=== PATIENT | female | born 1935 | race Caucasian/White ===

== ENCOUNTER → 2018-04-16 11:47 | Outpatient (CLI) | payer MEDICARE, OTHER, SELFPAY ==
--- NOTE | 2018-04-16 | DI.MG.S_ITS ---
BILATERAL DIGITAL SCREENING MAMMOGRAM 3D/2D WITH CAD: 04/16/2018 CLINICAL: Routine screening. Comparison is made to exams dated: 03/23/2017 mammogram - [facility], 02/24/2014 mammogram, and 01/24/2012 mammogram - [facility]. The tissue of both breasts is heterogeneously dense. This may lower the sensitivity of mammography. Current study was also evaluated with a Computer Aided Detection (CAD) system. No significant masses, calcifications, or other findings are seen in either breast. There has been no significant interval change. IMPRESSION: NEGATIVE There is no mammographic evidence of malignancy. A 1 year screening mammogram is recommended. This exam was interpreted at Station ID: [id number]. NOTE: For mammograms, a report in lay terms will be sent to the patient. Approximately 15% of breast malignancies will not be visualized mammographically. In the management of a palpable breast mass, a negative mammogram must not discourage biopsy of a clinically suspicious lesion. Electronically Signed By: Reese morris/laron:04/17/2018 08:48:30 letter sent: Normal Exam ACR BI-RADS Category 1: Negative [id number]
== END ==
PROVIDERS: PCP Family Medicine; Visit Provider Family Medicine
DX: Z12.31 Encounter for screening mammogram for malignant neoplasm of breast (principal)
CPT/HCPCS: 77063; 77067

== ENCOUNTER → 2018-12-18 16:16 | Outpatient (CLI) | payer MEDICARE, OTHER, SELFPAY ==
--- NOTE | 2018-12-18 | DI.RAD.S_ITS ---
PROCEDURE: XR LUMBAR SPINE 2-3V INDICATIONS: BACK PAIN TECHNIQUE: 3 views of the lumbar spine were acquired. COMPARISON: None. FINDINGS: Bones: 5 zog-omy-doyhuix vertebrae are present. There is normal bony alignment. No vertebral body compression fractures. No suspicious bony lesions. Moderate degenerative disc disease is seen best noted at the left lateral aspect of the L2-3 level of the lumbosacral spine, and also at L4-5 and L5-S1. Soft tissues: Overlying bowel gas pattern is normal. No suspicious soft tissue calcifications. IMPRESSION: No acute trauma found. Degenerative disc disease is moderate to moderately severe at L2-3 and L4-5 through L5-S1. Spinal and foraminal stenosis likely is associated at L4-5 and L5-S1. Dictated by: Wilmer Zambrano M.D. on 12/19/2018 at 8:17 Approved by: Wilmer Zambrano M.D. on 12/19/2018 at 8:18
--- NOTE | 2018-12-18 | DI.RAD.S_ITS ---
PROCEDURE: XR THORACIC SPINE 3V INDICATIONS: BACK PAIN TECHNIQUE: 3 views of the thoracic spine were acquired. COMPARISON: None. FINDINGS: Bones: No fractures or dislocations. No suspicious bony lesions. 12 pairs of ribs are noted, and appear intact where visualized. There is moderate degenerative disc disease along the thoracic spine partially obscuring visualization of the vertebral body endplates to the degree that a minimally displaced or impacted compression fracture would not be accurately detected. Soft tissues: No paravertebral stripe thickening. IMPRESSION: Degenerative changes as discussed, no definite acute fracture. Depending on the clinical status followup by MR scanning may be warranted for more accurate assessment both of an occult fracture or traumatic disc herniation. Dictated by: Wilmer Zambrano M.D. on 12/19/2018 at 8:16 Approved by: Wilmer Zambrano M.D. on 12/19/2018 at 8:17
== END ==
PROVIDERS: PCP Family Medicine; Visit Provider Family Medicine
DX: M54.9 Dorsalgia, unspecified (principal); M51.34 Other intervertebral disc degeneration, thoracic region; M51.36 Other intervertebral disc degeneration, lumbar region; M51.37 Other intervertebral disc degeneration, lumbosacral region
CPT/HCPCS: 72072; 72100

== ENCOUNTER 2019-02-21 12:48 | Day surgery (SDC) | payer MEDICARE, OTHER, SELFPAY ==
[2019-02-21 13:19] VITALS: BP 137/74; PULSE 67; RESP 15; TEMP 36.4; O2SAT 97; BMI 29.2
[2019-02-21] MEDS: SODIUM CHLORIDE 0.9% 1,000 ML 125 ML IV (13:28)
--- NOTE | 2019-02-21 13:42 | PM.HP.1 ---
History of Present Illness Date Patient Seen: 02/21/19 Time Patient Seen: 13:42 Chief complaint: [id number] Narrative: Pleasant 83yo F presents for surveillance colonoscopy. Gets every three years due to both parents having CRC, both were older ages. She says polyps are found every time. No other issues or complaints other than gaining weight from going on cruises recently. Patient History Social History household members: none Family & Social History Social History: household members none Meds Home Medications Medication Instructions Recorded Confirmed Type meloxicam 7.5 mg PO DAILY 02/21/19 02/21/19 History omeprazole 20 mg PO DAILY 02/21/19 02/21/19 History pravastatin 80 mg PO DAILY 02/21/19 02/21/19 History trazodone 100 mg PO DAILY 02/21/19 02/21/19 History Allergies Allergy/AdvReac Type Severity Reaction Status Date / Time No Known Drug Allergies Allergy Verified 02/21/19 13:17 Review of Systems Constitutional Constitutional: Reports as per HPI Exam Vital Signs (past 8 hours): - 02/21/19 13:19 Temperature 97.6 F Pulse Rate 67 Respiratory Rate 15 Blood Pressure 137/74 Pulse Oximetry 97 Oxygen Delivery Method Room Air Narrative Exam Narrative: AAO, NAD EOMI, MMM unlabored RA soft, nt/nd MAEW Assessment & Plan (1) History of colon polyps: Current visit: Yes Status: Acute Assessment & Plan narrative: - surveillance colonoscopy --> all R/B/A discussed and pt wishes to proceed
[2019-02-21 13:47] VITALS: BMI 29.2
[2019-02-21] MEDS: fentaNYL 250 MCG/5 ML INJ IV (14:04)
[2019-02-21] MEDS: MIDAZOLAM 5 MG/5 ML VIAL IV (14:05)
[2019-02-21 14:28] VITALS: BP 118/72; PULSE 66; RESP 14; TEMP 36.9; O2SAT 99
[2019-02-21 14:32] VITALS: BP 120/67; PULSE 62; RESP 15; O2SAT 96
[2019-02-21 14:40] VITALS: BP 117/67; PULSE 59; RESP 14; TEMP 36.5; O2SAT 95
--- NOTE | 2019-02-22 09:10 | PM.OP.ENDO ---
Operative Date/Time/Diagnoses Date of procedure: 02/21/19 Time of procedure: 14:30 Pre-op diagnosis: History of Polyps Post-op diagnosis: same Procedure & Clinicians Study performed: Surveillance Colonoscopy Same procedure as scheduled: Yes Indications: High risk pt given family history with personal history of polyps. Surgeon: Devora Gabriel Procedure Notes SCOAP/Timeout: 13:49 Procedure in detail: After obtaining informed consent, the patient was brought to the GI suite and placed in the left lateral decubitus position on the examination table. After placement of appropriate monitors, the patient was given incremental doses of Versed and Fentanyl until an appropriate level of sedation was achieved. A time out was held per SCOAP protocol. A digital rectal examination was performed and did not reveal any masses or obstructing lesions but very small external hemorrhoids are noted. The colonoscope was gently passed into the patient's anus and the entire colon navigated to the level of the cecum with some difficulty due to spasm. Prep was adequate. Once in the cecum, the scope was slowly withdrawn being sure to go before and beyond all mucosal folds and prominences as able to get a thorough examination. No masses or polyps are noted. Other findings include diverticulosis. At the level of the rectal vault, retroflexion was attempted but incompletely seen but aborted due to patient discomfort. The scope was straightened and air aspirated from the colon. The instrument was removed from the patient's body and the procedure was concluded. The patient was allowed to awaken from sedation without difficulty and taken to the post-anesthesia care unit in good condition. Scope withdrawal time: 12 min Sedation minutes: 32 Findings: diverticulosis Specimen(s): none sent Complications: none Impression: 1. Diverticulosis- moderate 2. Small external hemorrhoids Recommendations: Colonscopy in 3 years and High fiber diet Follow up: as needed Disposition: PACU
== END 2019-02-21 14:55 | disposition home or self-care (01) ==
PROVIDERS: PCP Family Medicine; Visit Provider Surgery
PROC: 0DJD8ZZ Inspection of Lower Intestinal Tract, Via Natural or Artificial Opening Endoscopic (ICD-10-PCS; CPT 45378; principal; 2019-02-21 14:00)
DX: Z86.010 Personal history of colon polyps (principal); Z80.0 Family history of malignant neoplasm of digestive organs; K57.30 Diverticulosis of large intestine without perforation or abscess without bleeding; K64.8 Other hemorrhoids
CPT/HCPCS: G0105; 99152; 99153; J2250; J3010

== ENCOUNTER → 2019-04-18 14:17 | Outpatient (CLI) | payer MEDICARE, OTHER, SELFPAY ==
--- NOTE | 2019-04-18 | DI.MG.S_ITS ---
BILATERAL DIGITAL SCREENING MAMMOGRAM 3D/2D WITH CAD: 04/18/2019 CLINICAL: Routine screening. Comparison is made to exams dated: 04/16/2018 mammogram, 03/23/2017 mammogram - [facility], and 02/24/2014 mammogram - [facility]. There are scattered fibroglandular elements in both breasts. Current study was also evaluated with a Computer Aided Detection (CAD) system. No significant masses, calcifications, or other findings are seen in either breast. There has been no significant interval change. IMPRESSION: NEGATIVE There is no mammographic evidence of malignancy. A 1 year screening mammogram is recommended. This exam was interpreted at Station ID: [id number]. NOTE: For mammograms, a report in lay terms will be sent to the patient. Approximately 15% of breast malignancies will not be visualized mammographically. In the management of a palpable breast mass, a negative mammogram must not discourage biopsy of a clinically suspicious lesion. Electronically Signed By: Yasmin white/laron:04/18/2019 15:31:05 letter sent: Normal Exam ACR BI-RADS Category 1: Negative [id number]
== END ==
PROVIDERS: PCP Family Medicine; Visit Provider Family Medicine
DX: Z12.31 Encounter for screening mammogram for malignant neoplasm of breast (principal); M85.851 Other specified disorders of bone density and structure, right thigh; Z78.0 Asymptomatic menopausal state; Z82.62 Family history of osteoporosis; Z90.722 Acquired absence of ovaries, bilateral
CPT/HCPCS: 77063; 77067; 77080

== ENCOUNTER 2024-06-20 09:42 | Emergency (ER) | payer MEDICARE, OTHER, SELFPAY ==
[2024-06-20 09:51] VITALS: BP 185/87; PULSE 66; RESP 15; TEMP 36.1; O2SAT 97; BMI 29.2
--- NOTE | 2024-06-20 09:55 | DI.RAD.S_ITS ---
PROCEDURE: XR CHEST 2V INDICATIONS: pain under right breast TECHNIQUE: 2 views of the chest were acquired. COMPARISON: [facility], , XR CHEST 2V, 10/07/2022, 15:05. FINDINGS: Surgical changes and devices: None. Lungs and pleura: Lungs are clear. No pleural effusions or pneumothorax. Mediastinum: Mediastinal contours are normal. Heart size is normal. Bones and chest wall: No suspicious bony abnormalities. Soft tissues appear unremarkable. IMPRESSION: No acute cardiopulmonary abnormality is seen. Dictated by: Jc Bustillo M.D. on 06/20/2024 at 10:47 Approved by: Jc Bustillo M.D. on 06/20/2024 at 10:48
--- NOTE | 2024-06-20 09:55 | EKG_ITS ---
[address] [address] [address], [place] [address] Test Date: 2024-06-20 Pat Name: Johana Vazquez Department: Room: Gender: Female Program Trainer: : 1935 Requested By: Order Number: [id number] Reading MD: Preet Bolaños Measurements Intervals [place] Rate: 69 P: 46 MT: 148 QRS: 18 QRSD: 72 T: 53 QT: 398 QTc: 426 Interpretive Statements Normal sinus rhythm Electronically Signed On 06-24-2024 9:14:47 PDT by Preet Bolaños
--- NOTE | 2024-06-20 11:01 | ED_ITS ---
HPI - Extremity Problem <Rocky Toro PA-C - Last Filed: 06/20/24 11:23> General Chief complaint: Extremity Problem,Nontraumatic Stated complaint: Pain under right breast Time Seen by Provider: 06/20/24 11:01 Source: patient Mode of arrival: Ambulatory History of Present Illness HPI Narrative: This is a 88-year-old female presents to the emergency department due to Right- sided rib pain onset last evening. She states that she was pulling weeds earlier in the day states that this may have caused the pain. The pain worsens when she pushes on the lower anterior right ribs. She denies any chest pain, left arm pain, nausea, vomiting, shortness of breath, or any other concerning signs or symptoms. Denies any abdominal pain or fevers. Related Data Home Medications Medication Instructions Recorded Confirmed meloxicam 7.5 mg tablet 7.5 mg PO DAILY 02/21/19 02/21/19 omeprazole 20 mg capsule,delayed 20 mg PO DAILY 02/21/19 02/21/19 release pravastatin 80 mg tablet 80 mg PO DAILY 02/21/19 02/21/19 trazodone 100 mg tablet 100 mg PO DAILY 02/21/19 02/21/19 Previous Rx's Medication Instructions Recorded sodium,potassium,mag sulfates 17.5 See Rx Instructions PO .COMPLEX 11/18/22 gram-3.13 gram-1.6 gram oral soln #354 mL (Suprep Bowel Prep Kit) hydrocodone 5 mg-acetaminophen 325 1 tab PO Q6H PRN pain #14 tabs 09/29/23 mg tablet Allergies Allergy/AdvReac Type Severity Reaction Status Date / Time No Known Drug Allergies Allergy Verified 06/20/24 09:51 Review of Systems <Rocky Toro PA-C - Last Filed: 06/20/24 11:23> Review of Systems Narrative: GENERAL: Denies chills, fatigue, malaise, fever, sweats. HEENT: Denies sinus pain, ear pain, sore throat, difficulty swallowing, dizziness. RESPIRATORY: Denies dyspnea, cough, wheezing, hemoptysis, sputum. CARDIOVASCULAR: Denies chest pain, palpitations, orthopnea, edema, GASTROINTESTINAL: Denies nausea, vomiting, abdominal pain, diarrhea, constipation, melena. : Denies dysuria, frequency, incontinence, hematuria, urinary retention. MUSCULOSKELETAL: Right rib pain, denies weakness, joint pain, or bony pain SKIN: Denies rash, skin lesions, or other NEUROLOGIC: Denies weakness, headache, numbness, change in speech, confusion, seizures, incoordination. PSYCHIATRIC: No concerning psychosocial issues. 12 point review of systems is negative except for those stated above Patient History <Rocky Toro PA-C - Last Filed: 06/20/24 11:23> Social History household members: none Smoking Status: Never smoker Smoking Status: Never smoker alcohol intake frequency: holidays/special occasions only Substance Use Type: does not use Exam <Rocky Toro PA-C - Last Filed: 06/20/24 11:23> Narrative Exam Narrative: GENERAL: Well-developed patient, in mild distress. HEAD: Atraumatic. Normocephalic. EYES: Pupils equal round and reactive. Extraocular motions intact. No scleral icterus. No injection or drainage. ENT: Nose without bleeding, purulent drainage. Throat without erythema, tonsillar hypertrophy or exudate. Airway patent. NECK: Trachea midline. Non tender EXTREMITIES: No edema or joint tenderness. NEURO: AOx3. SKIN: No rash or erythema of visible areas CARDIOVASCULAR: Regular rate and rhythm without murmurs, gallops, or rubs. tenderness to palpation to the anterior lower right ribs. RESPIRATORY: Clear to auscultation. Breath sounds equal bilaterally. No wheezes, rales, or rhonchi. GASTROINTESTINAL: Abdomen soft, non-tender, nondistended. BACK: Nontender without deformity or crepitance. No flank tenderness. Initial Vital Signs Initial Vital Signs: Vital Signs Temperature 97.0 F L 06/20/24 09:51 Pulse Rate 66 06/20/24 09:51 Respiratory Rate 15 06/20/24 09:51 Blood Pressure 185/87 H 06/20/24 09:51 Pulse Oximetry 97 06/20/24 09:51 Oxygen Delivery Method Room Air 06/20/24 09:51 <Ailyn Stoddard DO - Last Filed: 06/21/24 08:52> Initial Vital Signs Initial Vital Signs: Vital Signs Temperature 97.0 F L 06/20/24 09:51 Pulse Rate 66 06/20/24 09:51 Respiratory Rate 15 06/20/24 09:51 Blood Pressure 185/87 H 06/20/24 09:51 Pulse Oximetry 97 06/20/24 09:51 Oxygen Delivery Method Room Air 06/20/24 09:51 Course <Rocky Toro PA-C - Last Filed: 06/20/24 11:23> Orders Ordered: ED Orders 06/20/24 09:55 Chest [XR chest 2V] Stat EKG-12 Lead Stat Vital Signs Vital signs: Vital Signs - 8 hr 06/20/24 09:51 Temperature 97.0 F L Pulse Rate 66 Respiratory Rate 15 Blood Pressure 185/87 H Pulse Oximetry 97 Oxygen Delivery Method Room Air <Ailyn Stoddard DO - Last Filed: 06/21/24 08:52> Orders Ordered: ED Orders 06/20/24 09:55 Chest [XR chest 2V] Stat EKG-12 Lead Stat Vital Signs Vital signs: Vital Signs - 8 hr 06/20/24 09:51 Temperature 97.0 F L Pulse Rate 66 Respiratory Rate 15 Blood Pressure 185/87 H Pulse Oximetry 97 Oxygen Delivery Method Room Air MDM - Extremity (Nontraumatic) <Rocky Toro PA-C - Last Filed: 06/20/24 11:23> Imaging Data Chest x-ray: Radiologist's Impression: [place] [address] XRay Report Signed Patient: Johana Vazquez MR#: [id number] : 1935 Acct:[id number] Age/Sex: 88 / F Date of Service: 06/20/24 Loc: ED Accession Number: [id number] Procedure: XR chest 2V Ordering Provider: Ailyn Stoddard D.O. PROCEDURE: XR CHEST 2V INDICATIONS: pain under right breast TECHNIQUE: 2 views of the chest were acquired. COMPARISON: [facility], , XR CHEST 2V, 10/07/2022, 15:05. FINDINGS: Surgical changes and devices: None. Lungs and pleura: Lungs are clear. No pleural effusions or pneumothorax. Mediastinum: Mediastinal contours are normal. Heart size is normal. Bones and chest wall: No suspicious bony abnormalities. Soft tissues appear unremarkable. IMPRESSION: No acute cardiopulmonary abnormality is seen. Dictated by: Jc Bustillo M.D. on 06/20/2024 at 10:47 Approved by: Jc Bustillo M.D. on 06/20/2024 at 10:48 ECG Data Interpretation: 1004: EKG is normal sinus rhythm rate 69 and free of any signs of ischemia or ectopy. No ST segmental elevation or depression. No T wave inversions MDM Narrative Medical decision making narrative: ED course: This is a 88-year-old female with no significant medical history presents emergency department due to a a suspected intercostal strain. Her EKG was unremarkable as well as her chest x-ray showing no acute findings. She was not describe any chest pressure, left arm pain, or any other systemic symptoms. The pain to the ribs does worsen with palpation and suspect soft tissue in nature. Recommended supportive care. CC: Right rib pain Complicating co-morbidities: none Data collected from: Previous notes Medical records reviewed: Patient was last seen here here in the emergency department about a year and a half ago due to left knee pain. Differential considered, but not limited to: STEMI, NSTEMI, thoracic aneurysm, rib fracture, rib contusion, intercostal strain, pneumonia Exam documented above, pertinent findings include: tenderness to palpation to the inferior anterior right ribs Lab Test results independently reviewed as above. Pertinent findings: EKG unremarkable Imaging studies independently reviewed: chest x-ray unremarkable Scores Used: None MIPS Elements: None Consultations: None Treatments: none Re-evaluations: none Discussion: Discussed plan with the patient was comfortable with the plan Diagnosis: intercostal strain Disposition: see below, along with detailed discharge instructions that have been reviewed with patient as well as indications for ED re-evaluation and additional outpatient follow up <Ailyn Stoddard, - Last Filed: 06/21/24 08:52> ECG Data Interpretation: 1004: EKG is normal sinus rhythm rate 69 and free of any signs of ischemia or ectopy. No ST segmental elevation or depression. No T wave inversions Arlyn normal sinus rhythm rate 69 [place] interval 140 QRS 72 QTC 426 Q-wave noted in lead [address] changes Discharge Plan Departure Patient Disposition: Home Clinical Impression: Intercostal muscle strain Activity Restrictions/Additional Instructions: Thank you for coming to the [facility] Emergency Department today. as we discussed I suspect of the strain of the muscles between the ribs on the right side. Your EKG was very reassuring and did not show evidence of a heart attack. Your chest x-ray was unremarkable as well and did not show any evidence of any kind of lung injury, pneumonia, rib fracture. I recommend ibuprofen and Tylenol for the suspected muscular pain. Please return to the emergency department if you develop any Significant chest pain, shortness of breath, nausea, vomiting, or any other concerning signs or symptoms. I hope you feel better soon. Please follow up with your primary care provider within a week if your symptoms continue. If you do not have a primary care provider please contact the [facility] Resource line at [phone]. They will ask some questions about your medical history and help you get set up with a provider in the community. Prescriptions: No Action sodium,potassium,mag sulfates [Suprep Bowel Prep Kit] 17.5-3.13-1.6 gram recon soln See Rx Instructions PO .COMPLEX Qty: 354 0RF Rx Instructions: Take as directed by Physician meloxicam 7.5 mg Tablet 7.5 mg PO DAILY pravastatin 80 mg Tablet 80 mg PO DAILY trazodone 100 mg Tablet 100 mg PO DAILY omeprazole 20 mg Capsule,Delayed Release(Dr/Ec) 20 mg PO DAILY hydrocodone-acetaminophen 5-325 mg tablet 1 tab PO Q6H PRN (Reason: pain) Qty: 14 0RF Referrals: Parvin Mohan MD [Primary Care Provider] - Stand Alone Forms: Patient Portal/API ED Sign-out <Ailyn Stoddard DO - Last Filed: 06/21/24 08:52> Cosign ED Attending Lizzature Attestation: I was available for consultation.
[2024-06-20 11:32] VITALS: BP 164/77; PULSE 67; RESP 16; O2SAT 99
== END 2024-06-20 11:32 | disposition home or self-care (01) ==
PROVIDERS: Emergency Provider Physician Assistant Medical; PCP Family Medicine
DX: S29.011A Strain of muscle and tendon of front wall of thorax, initial encounter (principal); R07.89 Other chest pain
CPT/HCPCS: 71046; 93005; 99281; 99284